=== PATIENT | male | born 1990 | race African-American/Black ===

== ENCOUNTER 2020-09-01 08:11 | Emergency (ER) | payer OTHER ==
[2020-09-01] MEDS ORDERED: Acetaminophen 500 MG Tab PO ONE (08:47)
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
== END 2020-09-01 09:08 | disposition home or self-care (01) ==
LOC: JP.ED 08:11
DX: S39.012A Strain of muscle, fascia and tendon of lower back, initial encounter (principal); G44.209 Tension-type headache, unspecified, not intractable; Z79.899 Other long term (current) drug therapy; V59.40XA Driver of pick-up truck or van injured in collision with unspecified motor vehicles in traffic accident, initial encounter
CPT/HCPCS: 99283; A9270-GY